=== PATIENT | male | born 1960 | race Caucasian/White ===

== ENCOUNTER → 2019-12-06 | Outpatient (CLI) | payer MEDICARE ==
--- NOTE | 2019-12-06 08:52 | CT ---
EXAMINATION TYPE: CT sinus wo con DATE OF EXAM: 12/06/2019 COMPARISON: NONE HISTORY: Chronic sinusitis per order. Cough and sore throat per patient. CT DLP: 575.30 mGycm. Automated Exposure Control for Dose Reduction was Utilized. TECHNIQUE: CT scan of the sinuses is performed without contrast, axial images are obtained, coronal r eformatted images are also reviewed. FINDINGS: Drad-mo-hpnzaxha slightly lobulated mucosal thickening involving the maxillary sinuses slig htly greater on the left and more prominent inferiorly. Moderate mucosal thickening posteriorly in th e left sphenoid sinus. Right sphenoid sinus is clear. Mwfy-wb-[id number] mucosal thickening in the ante rior ethmoid sinuses bilaterally. No suspicious patchy opacification or air-fluid levels. The ostiom eatal complex is narrowed bilaterally on the coronal images due to antral mucosal thickening but quinton ins patent seen best on the right coronal image 18 and on the left coronal image 19. Nasal septum is deviated to right of midline. Visualized portion of mastoid air cells show no abnormal opacification. The globes are intact bilate rally. IMPRESSION: Chronic paranasal sinus disease as detailed above. No acute sinusitis currently.
--- NOTE | 2019-12-06 09:53 | FL ---
EXAMINATION TYPE: FL barium swallow DATE OF EXAM: 12/06/2019 CLINICAL HISTORY: Dysphagia per order. Persistent cough worse at night. TECHNIQUE: A double contrast esophagram is attempted utilizing air and barium. A total of 32 second s of fluoroscopic time was utilized during procedure. 32 spot images saved to PACS. COMPARISON: None FINDINGS: Exam noted suboptimal as patient had poor tolerance of air crystals along with oral barium bulge causing coughing and retching. Essentially suboptimal single contrast study was performed. Some episodes of dysmotility with findings of poor emptying into the stomach. No large intraluminal mass or stricture. No fixed hiatal hernia. Suboptimal evaluation for reflux as patient is unable to tolera te more ingested contrast IMPRESSION: Suboptimal study without obvious mass or stricture or fixed hiatal hernia.
== END | disposition home or self-care (01) ==
LOC: RADCTMAIN 08:22
PROVIDERS: ATTEND Otolaryngology
DX: J32.4 Chronic pansinusitis (principal); K21.9 Gastro-esophageal reflux disease without esophagitis
CPT/HCPCS: 70486; 74220